=== PATIENT | female | born 1940 | race Caucasian/White ===

== ENCOUNTER 2023-07-13 04:20 | Emergency (ER) | payer MEDICARE, BC ==
[~2023-07-13] VITALS: Ht 157.5 cm; Wt 84.1 kg
[~2023-07-13 04:20] MED LIST: AMI200T PO; AMLO2.5T2 PO; ASPI-611 PO; CALC1TAB PO; CHOL200052 PO; COL100C PO; EZET10TA6 PO; FISH12002 PO; HYDR-3972 PO; LOP25T PO; LOVA20TA2 PO; MAGN500C4 PO; MET0.75G TP; METF-437 PO; MULT-38 PO; OMEP20CA16 PEG; [UNRECOGNIZED DRUG - OTHER] PO
[2023-07-13 05:41] LABS: BASOPHILS % (AUTO) 0.4 % (0-1); EOSINOPHILS # (AUTO) 0.1 X10'3 (0-0.9); EOSINOPHILS % (AUTO) 0.8 % (0-6); HEMATOCRIT 33.2 % (35.0-45.0); HEMOGLOBIN 11.3 g/dl (12.0-16.0); LYMPHOCYTES # (AUTO) 1.1 X10'3 (1.1-4.8); LYMPHOCYTES % (AUTO) 11.5 % (21-51); MEAN CORPUSCULAR HEMOGLOBIN 33.6 PG (27.0-31.0); MEAN CORPUSCULAR VOLUME 98.9 FL (78-98); MEAN PLATELET VOLUME 8.7 FL (7.4-10.4); MONOCYTES # (AUTO) 0.4 X10'3 (0-0.9); MONOCYTES % (AUTO) 4.4 % (2-12); NEUTROPHILS # (AUTO) 7.6 X10'3 (1.8-7.7); NEUTROPHILS % (AUTO) 82.9 % (42-75); PLATELET COUNT 179 X10'3 (140-440); RED BLOOD COUNT 3.36 X10'6 (4.20-5.60); RED CELL DISTRIBUTION WIDTH 13.9 % (11.5-14.5); WHITE BLOOD COUNT 9.2 X10'3 (4.5-11.0)
[2023-07-13 06:17] LABS: BILIRUBIN,URINE NEGATIVE (Neg); CLARITY,URINE CLEAR (Clear); COLOR,URINE YELLOW (Yellow); GLUCOSE, URINE 100 mg/dl (Neg); KETONES,URINE NEGATIVE (Neg); LEUKOCYTE ESTERASE ,URINE NEGATIVE (Neg); NITRITES, URINE NEGATIVE (Neg); OCCULT BLOOD,URINE NEGATIVE (Neg); PROTEIN,URINE TRACE mg/dl (Neg); UROBILINOGEN,URINE 0.2 E.U/dL (0.2-1.0)
[2023-07-13 06:22] LABS: UA COLLECTION TYPE CLN CATCH MIDSTREAM
[2023-07-13 06:25] LABS: ALANINE AMINOTRANSFERASE 22 U/L (12-78); ALBUMIN 3.8 G/DL (3.4-5.0); ALBUMIN/GLOBULIN RATIO 1.2 (1.1-1.5); ALKALINE PHOSPHATASE 70 IU/L (46-116); ANION GAP 13 (8-16); ASPARTATE AMINO TRANSFERASE 24 U/L (10-37); BILIRUBIN,TOTAL 0.4 MG/DL (0.1-1.0); BLOOD UREA NITROGEN 24 MG/DL (7-18); BUN/CREATININE RATIO 22.4 (10.0-20.0); CALCIUM 9.3 MG/DL (8.5-10.1); CHLORIDE 103 MMOL/L (99-107); CREATININE 1.07 MG/DL (0.40-0.90); GLUCOSE 188 MG/DL (70-104); LIPASE 15 U/L (16-77); POTASSIUM 3.2 MMOL/L (3.5-5.1); SODIUM 141 MMOL/L (135-145); TOTAL CARBON DIOXIDE 25.1 MMOL/L (24-32); eCRCL 32 ML/MIN; eGFR 49 ML/MIN
[2023-07-13 06:25] LABS: BACTERIA,URINE 1+ /HPF (Neg); HYALINE CASTS 0-3 /LPF (NEGATIVE); MUCUS STRANDS MODERATE /LPF (Neg); RBC,URINE NONE SEEN /HPF (0-2); SQUAMOUS EPITHELIAL CELL,UR MODERATE /LPF (FEW); WBC,URINE 0-4 /HPF (0-4)
[2023-07-13] MEDS ORDERED: meclizine 12.5mg tablet PO ONE (08:50)
[2023-07-13] MEDS ORDERED: normal saline 1000ml 1,000 ML IV ONE (08:50)
[2023-07-13] MEDS ORDERED: potassium Cl 20mEq/100mL bag 100 ML IV SCH (08:50)
[2023-07-13 11:21] VITALS: BP 129/64; PULSE 80; RESP 14; TEMP 98.1; O2SAT 98
[2023-07-13] MEDS ORDERED: MECL-302 PO (11:44)
== END 2023-07-13 11:23 | disposition home or self-care (01) ==
LOC: ER 04:21
DX: R42 Dizziness and giddiness (principal); R11.2 Nausea with vomiting, unspecified; Z95.1 Presence of aortocoronary bypass graft; Z79.82 Long term (current) use of aspirin; Z79.899 Other long term (current) drug therapy
CPT/HCPCS: 36415; 71045; 80053; 81001; 83690; 83880; 84484; 85025; 93005; 96365; 96366; 99285; J3480; J7030; J8597